=== PATIENT | male | born 1950 | race African-American/Black ===

== ENCOUNTER 2022-07-27 10:31 | Observation (INO) ==
[2022-07-27 11:16] LABS: Basophils % 0.4 % (0.0-0.8); Immature Granulocytes % 4.4 %; Immature Granulocytes Absolute 0.22 #; Lymphocytes # 0.8 10*3/uL (1.4-4.0); Lymphocytes % 16.3 % (21.2-54.2); Mean Corpuscular Volume 83.2 FL (87-102); Mean Platelet Volume 10.9 FL (9.6-12.0); Monocytes # 0.7 10*3/uL (0.11-0.8); Monocytes % 14.7 % (1.7-12.7); NRBC # 0.26 10*3/uL; Neutrophils % 64.2 % (38.7-73.9); Platelet Count 118 T/CUMM (130-400); Red Cell Distribution Width 19.4 % (9.3-17.3); White Blood Count 4.98 T/CUMM (4-12)
[2022-07-27 11:23] LABS: Hematocrit 15.8 VOL% (42.0-52.0); Hemoglobin 4.9 GM/DL (14.0-18.0)
[2022-07-27 11:24] LABS: INR 1.1; PT Patient Result 11.9 SECS (10.1-12.1)
[2022-07-27] MEDS ORDERED: SODIUM CHLORIDE 0.9% 1,000 ML IV PRN (11:40)
[2022-07-27 11:46] LABS: Band Neutrophils 2 % (0-10); Eosinophils 1 % (0-10); Lymphocytes 18 % (20-55); Nucleated Red Blood Cells 4 /100 WBC (0-5); Total Cells Counted 100
[2022-07-27 11:48] LABS: Microcytosis 1+; Ovalocytes 1+
[2022-07-27 11:49] LABS: Tear Drop Cells 1+
[2022-07-27 11:50] LABS: Platelet Estimate Normal
[2022-07-27 11:51] LABS: Anisocytosis 2+; Polychromasia Slight
[2022-07-27 11:52] LABS: Alanine Aminotransferase 15 U/L (16-61); Albumin 2.8 G/DL (3.4-5.0); Alkaline Phosphatase 163 U/L (45-117); Aspartate Amino Transferase 33 U/L (0-37); Bilirubin,Total < 0.39 MG/DL (0.20-1.00); Blood Urea Nitrogen 69 MG/DL (7-18); Calcium 7.7 MG/DL (8.5-10.1); Carbon Dioxide 12 MMOL/L (21-32); Chloride 108 MMOL/L (98-107); Glucose 339 MG/DL (74-106); Osmolality,Calculated 300.2 MOS/KG (273-304); Potassium 5.4 MMOL/L (3.5-5.1); Sodium 134 MMOL/L (136-145); Total Protein 6.1 G/DL (6.4-8.2)
[2022-07-27] MEDS ORDERED: ACETAMINOPHEN 325 MG TABLET PO PRN (12:38)
[2022-07-27] MEDS ORDERED: ONDANSETRON 4 MG/2 ML VIAL IV PRN (12:38)
[2022-07-27] MEDS: oxyCODONE/ACETAMINOPHEN 5-325 MG TABLET PO PRN ×2 (15:56→23:11)
[2022-07-27] MEDS ORDERED: DEXTROSE 10% 250 ML BAG IV PRN (15:57)
[2022-07-27] MEDS ORDERED: GLUCAGON 1 MG VIAL IM PRN (15:57)
[2022-07-27] MEDS: SODIUM BICARB INJ 100 MEQ in SODIUM CHLORIDE 0.45% 1,000 ML IV SCH (16:00)
[2022-07-27] MEDS: INSULIN LISPRO 100 UNIT/ML SUBCUT SCH ×3 (16:23→22:01)
[2022-07-27] MEDS ORDERED: KETOROLAC 30 MG/1 ML VIAL IV ONE (19:58)
[2022-07-27] MEDS ORDERED: GLIMEPIRIDE 4 MG TABLET PO PRN (21:00)
[2022-07-27] MEDS ORDERED: ROSUVASTATIN 20 MG TABLET PO SCH (21:00)
[2022-07-27] MEDS: POLYETHYLENE GLYCOL POWDER 17 GM PACK PO SCH (22:02)
[2022-07-28 00:36] LABS: Hematocrit 19.2 VOL% (42.0-52.0)
[2022-07-28 00:38] LABS: Hemoglobin 6.3 GM/DL (14.0-18.0)
[2022-07-28] MEDS ORDERED: MELATONIN 3 MG TABLET PO PRN (01:04)
[2022-07-28] MEDS ORDERED: INSULIN REGULAR 10 UNIT, CALCIUM GLUCONATE 1,000 MG in DEXTROSE 10% 250 ML IV ONE (01:26)
[2022-07-28] MEDS: SODIUM BICARB INJ 100 MEQ in SODIUM CHLORIDE 0.45% 1,000 ML IV SCH ×2 (03:08→16:37)
[2022-07-28 05:22] LABS: Basophils % 0.4 % (0.0-0.8); Eosinophils % 0.2 % (0.00-10.9); Immature Granulocytes % 3.3 %; Immature Granulocytes Absolute 0.15 #; Lymphocytes # 0.7 10*3/uL (1.4-4.0); Lymphocytes % 14.5 % (21.2-54.2); Mean Corpuscular HGB Conc 32.5 GM/DL (32-36); Mean Corpuscular Volume 83.7 FL (87-102); Mean Platelet Volume 9.9 FL (9.6-12.0); Monocytes # 0.9 10*3/uL (0.11-0.8); Monocytes % 18.9 % (1.7-12.7); NRBC # 0.35 10*3/uL; Neutrophils % 62.7 % (38.7-73.9); Platelet Count 79 T/CUMM (130-400); Red Blood Count 2.02 MC/CUMM (3.8-5.5); White Blood Count 4.49 T/CUMM (4-12)
[2022-07-28 05:28] LABS: Hemoglobin 5.5 GM/DL (14.0-18.0)
[2022-07-28 05:29] LABS: Hematocrit 16.9 VOL% (42.0-52.0)
[2022-07-28 05:30] LABS: Bacteria,Urine Occasional /HPF (Few); Bilirubin,Urine Negative (Negative); Glucose,Urine (UA) Negative (Negative); Hyaline Casts,Urine 1 /LPF (0-3); Ketones,Urine Negative (Negative); Mucus,Urine Occasional /LPF (Occasional); Nitrite,Urine Negative (Negative); Protein,Urine Negative (Negative); RBC,Urine 2 /HPF (0-4); Squamous Epithelial Cell,Urine Occasional /HPF (0-10); Urine Appearance Clear (Clear); Urine Color Yellow (Yellow)
[2022-07-28 05:31] LABS: Blood, Urine Negative (Negative); Urine Urobilinogen 0.2 eU/dL (<2.0)
[2022-07-28] MEDS ORDERED: SODIUM CHLORIDE 0.9% 1,000 ML IV PRN (05:37)
[2022-07-28 05:41] LABS: Alanine Aminotransferase 15 U/L (16-61); Albumin 2.6 G/DL (3.4-5.0); Alkaline Phosphatase 143 U/L (45-117); Aspartate Amino Transferase 108 U/L (0-37); Bilirubin,Total < 0.39 MG/DL (0.20-1.00); Blood Urea Nitrogen 72 MG/DL (7-18); Calcium 7.3 MG/DL (8.5-10.1); Carbon Dioxide 13 MMOL/L (21-32); Chloride 109 MMOL/L (98-107); Glucose 178 MG/DL (74-106); Osmolality,Calculated 290.4 MOS/KG (273-304); Potassium 5.2 MMOL/L (3.5-5.1); Sodium 133 MMOL/L (136-145); Total Protein 5.4 G/DL (6.4-8.2)
[2022-07-28 05:46] LABS: Lymphocytes 14 % (20-55); Nucleated Red Blood Cells 5 /100 WBC (0-5); Platelet Estimate Decreased; Total Cells Counted 100
[2022-07-28 05:47] LABS: Hypochromia 1+; Microcytosis 1+
[2022-07-28] MEDS: oxyCODONE/ACETAMINOPHEN 5-325 MG TABLET PO PRN (07:57)
[2022-07-28] MEDS: POLYETHYLENE GLYCOL POWDER 17 GM PACK PO SCH (08:48)
[2022-07-28] MEDS: INSULIN LISPRO 100 UNIT/ML SUBCUT SCH ×3 (08:52→16:38)
[2022-07-28] MEDS ORDERED: DICLOFENAC SODIUM 75 MG TABLET PO SCH (09:00)
[2022-07-28] MEDS ORDERED: ASPIRIN EC 81 MG TABLET PO SCH (09:00)
[2022-07-28] MEDS ORDERED: lisinopriL 20 MG TABLET PO SCH (09:00)
[2022-07-28] MEDS ORDERED: MEGESTROL 400 MG/10 ML UDCUP PO SCH (09:00)
[2022-07-28] MEDS ORDERED: DEXAMETHASONE 0.5 MG TABLET PO SCH (09:00)
[2022-07-28] MEDS ORDERED: PANTOPRAZOLE 40 MG TABLET PO SCH (09:00)
[2022-07-28] MEDS ORDERED: HYDROmorphone 1 MG/1 ML SYRINGE IV PRN (10:21)
[2022-07-28] MEDS ORDERED: fentaNYL 75 MCG/HR PATCH TRANSDERM SCH (11:00)
[2022-07-28 13:25] VITALS: BP 104/66
[2022-07-28 14:01] LABS: Hematocrit 24.8 VOL% (42.0-52.0); Hemoglobin 8.2 GM/DL (14.0-18.0)
[2022-07-29] MEDS ORDERED: fentaNYL 50 MCG/HR PATCH TRANSDERM SCH (18:00)
== END 2022-07-28 15:57 | disposition home or self-care (01) ==
LOC: N.EDINP 10:31 → N.ED 10:31 → N.TELES 13:50
PROVIDERS: ADMIT Internal Medicine; ATTEND Internal Medicine